=== PATIENT | male | born 1975 | race Hispanic/Latino ===

== ENCOUNTER 2019-04-01 10:14 | Outpatient (CLI) | payer BC ==
--- NOTE | 2019-04-01 12:22 | RAD ---
LEFT HEEL 2 VIEWS: Date: 04/01/19 HISTORY: Plantar fasciitis. FINDINGS: Small calcaneal spurs are seen at the insertion of the Achilles tendon and plantar fascia on the calc aneus. Subtalar joint appears unremarkable. No other significant findings. IMPRESSION: Small calcaneal spurs. POS: GIO
--- NOTE | 2019-04-01 12:26 | RAD ---
RIGHT HEEL 2 VIEWS: Date: 04/01/19 HISTORY: Plantar fasciitis. FINDINGS: Calcaneal spurs at the insertion of the Achilles tendon and plantar fascia on the calcaneus are noted . No other significant finings. IMPRESSION: Calcaneal spurs. POS: GIO
== END 2019-04-01 10:15 | disposition home or self-care (01) ==
LOC: BICRAD 10:14
PROVIDERS: ATTEND Physician Assistant
DX: M72.2 Plantar fascial fibromatosis (principal); M77.32 Calcaneal spur, left foot; M77.31 Calcaneal spur, right foot

== ENCOUNTER 2023-04-10 14:23 | Outpatient (CLI) | payer BC ==
[~2023-04-10 14:23] MED LIST: Magnevist 469MG/ML 20 ML VIAL ONE
== END 2023-04-10 14:24 | disposition home or self-care (01) ==
LOC: BICMRI 14:23
PROVIDERS: ATTEND Surgery
DX: D17.0 Benign lipomatous neoplasm of skin and subcutaneous tissue of head, face and neck (principal)
CPT/HCPCS: 82565; A9579

== ENCOUNTER 2023-04-24 12:25 | Outpatient (CLI) | payer BC ==
[2023-04-24 13:17] LABS: #Eosinphils 0.1 10x3/uL (0.0-0.5); #Monocytes 0.6 10x3/uL (0.0-1.1); #Neutrophils 6.3 10x3/uL (1.5-8.4); %Basophils 0.4 % (0.0-2.0); %Eosinophils 0.9 % (0.0-6.0); %Lymphocytes 24.6 % (18.0-47.0); %Monocytes 6.5 % (0.0-10.0); %Neutrophils 67.3 % (40.0-75.0); Hemoglobin 16.9 g/dL (13.5-17.5); Mean Corpuscular HGB CONC 34.5 g/dL (32.0-36.0); Mean Corpuscular Hemoglobin 29.9 pg (27.0-33.0); Mean Corpuscular Volume 86.6 fl (81.2-95.1); Mean Platelet Volume 11.1 fl (7.4-10.4); Platelet Count 258 10x3/uL (150-450); RBC Distribution Width 13.2 % (11.5-14.5); Red Blood Cell (RBC) Count 5.66 10x6/uL (4.32-5.72); White Blood Cell (WBC) Count 9.3 10x3/uL (3.5-10.5)
== END 2023-04-24 12:26 | disposition home or self-care (01) ==
LOC: LABBT 12:25
PROVIDERS: ATTEND Surgery
DX: Z01.818 Encounter for other preprocedural examination (principal); D17.21 Benign lipomatous neoplasm of skin and subcutaneous tissue of right arm
CPT/HCPCS: 85025; 93005; 93010